=== PATIENT | male | born 1975 | race Caucasian/White ===

== ENCOUNTER 2022-07-08 10:16 | Emergency (ER) | payer SELFPAY ==
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
[2022-07-08 11:59] LABS: Absolute Lymphocytes (CBC) 2.4 K/uL (0.7-4.9); Hematocrit 47.4 % (39.6-49.0); Lymphocytes % 20.6 % (15.3-44.8); MCV 97.9 fL (80-100); MPV 8.8 fL (7.6-11.3); RBC Red Blood Cell Count 4.84 M/uL (4.33-5.43)
[2022-07-08] MEDS ORDERED: FOLIC ACID 1 MG, THIAMINE HCL 100 MG, MULTIVITAMINS INJ 10 ML in NA CHLORIDE 0.9% 1,000 ML IV ONE (12:00)
[2022-07-08] MEDS ORDERED: LORAZEPAM 1 MG TABLET ONE ×2 (12:15→15:10)
[2022-07-08 12:19] LABS: Albumin 3.9 g/dL (3.4-5.0); Bilirubin Direct 0.2 mg/dL (0-0.2); Bilirubin Total 0.8 mg/dL (0.2-1.0); Magnesium 1.9 mg/dL (1.8-2.4); Potassium 4.2 mmol/L (3.5-5.1); Protein, Total 8.2 g/dL (6.4-8.2); Troponin High Sensitivity 4.5 pg/mL (<58.9)
[2022-07-08 12:21] LABS: Protime INR 0.97
--- NOTE | 2022-07-08 12:44 | RAD REPORT ---
EXAM DESCRIPTION: RAD - Chest Single View - 07/08/2022 12:36 pm CLINICAL HISTORY: chest pain COMPARISON: No comparisons FINDINGS: Lines: None. Lungs: No evidence of edema or pneumonia. Pleural: No significant pleural effusions or pneumothorax. Cardiac: The heart size is within normal limits. Mediastinum: Within normal limits. Bones: No acute fractures. Other: None IMPRESSION: No acute cardiopulmonary disease.
[2022-07-08] MEDS ORDERED: NA CHLORIDE 0.9% 1,000 ML ONE (13:33)
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
[2022-07-08 16:10] VITALS: TEMP 97.5
[2022-07-08 16:30] VITALS: BP 148/91; O2SAT 98
--- NOTE | 2022-07-09 12:50 | EKG ---
Test Date: 2022-07-08 Test Time: 10:27:30 Vending Supervisor: UDAY MEASUREMENT RESULTS: Intervals: Rate: 118 FL: 146 QRSD: 96 QT: 326 QTc: 456 [place]: P: 78 FL: 146 QRS: 12 T: 90 INTERPRETIVE STATEMENTS: Sinus tachycardia Right atrial enlargement Possible Inferior infarct, age undetermined Cannot rule out Anterior infarct, age undetermined Abnormal ECG No previous ECG available for comparison Electronically Signed On 07-09-22 12:49:32 CDT by Dom Rosales
== END 2022-07-08 15:19 | disposition home or self-care (01) ==
LOC: ER 10:16
DX: R07.9 Chest pain, unspecified (principal); F10.239 Alcohol dependence with withdrawal, unspecified; G89.29 Other chronic pain; Z88.0 Allergy status to penicillin
CPT/HCPCS: 36415; 71045; 80048; 80076; 80320; 83735; 83880; 84484; 85025; 85610; 93005; 96365; 96366; 99285; J3411; J7030